=== PATIENT | female | born 1955 | race Caucasian/White ===

== ENCOUNTER 2024-08-04 07:38 | Outpatient (REF) | payer SELFPAY ==
--- NOTE | ~2024-08-04 | XR_ITS ---
EXAMINATION: XR KNEE, RIGHT CLINICAL INFORMATION: Pain in the right knee COMPARISON: None available. TECHNIQUE: Four views of the right knee. FINDINGS: The joint compartments are unremarkable without joint space narrowing or marginal osteophytes. There is a 5 x 3 mm area of ossification noted posterior and just distal to the joint line. This could reflect loose body within a Danielle's cyst or ossification/calcification related to old soft tissue trauma. No effusion. XR/XR knee RT 3V IMPRESSION: No definite osteoarthritis or acute abnormality. Question loose body versus posttraumatic change in the posterior soft tissues Electronically signed by: Chidi Singh MD 08/10/2024 08:33 AM LESLY
== END 2024-08-04 07:39 | disposition home or self-care (01) ==
LOC: HO.HOSX 07:38
PROVIDERS: Visit Provider Orthopaedic Surgery
DX: M25.561 Pain in right knee (principal)
CPT/HCPCS: 73562; 99202

== ENCOUNTER 2024-08-04 08:18 | Outpatient (AMB) | payer MEDICARE, SELFPAY ==
--- NOTE | 2024-08-04 08:22 | A.OFFVIS_ITS ---
Intake Visit Reasons: [employer]-Right Knee Pain Intake Note: Tessa is a 68 year old female who presents with complaints of right knee pain. She describes her pain as sharp in nature. Most of the pain is along the anterior aspect of her right knee. The patient states that she did aggravate her right knee several weeks ago while kneeling doing yd work. She denies any locking or giving way. She has tried Tylenol and anti-inflammatory medicines which gave her only mild relief. She has done stretching exercises which seemed to aggravate her pain. Allergies No Known Allergies Allergy (Verified 08/04/24 08:29) Medication List - Last Reconciled 08/05/24 by Camron [place] MD atorvastatin 10 mg PO BEDTIME levothyroxine 75 mcg PO DAILY lorazepam mg PO methylprednisolone (Medrol (Aric)) PO PER PKG DIR Physical Exam Const Other: Well-nourished well-developed very friendly female awake alert and oriented x3 in no acute distress Extrem Other: Bilateral lower extremity examination shows good capillary refill, no skin lesions noted, normal sensation light touch Right knee examination shows a minimal effusion, mild crepitus with range of motion, tenderness along her medial joint line, positive Waleska's test, no instability Results Reviewed Results Reviewed: X-rays of the patient's right knee show mild diffuse joint space narrowing, no acute bony abnormalities Assessment & Plan Assessment & Plan (1) Right knee pain: Code(s): M25.561 - Pain in right knee Category: Medical Plan Mrs. Pagan presents with right knee pain due to early degenerative joint disease versus possible medial meniscus tearing. I had a lengthy discussion with the patient regarding the treatment options. We will hold off on a cortisone injection for now. I did give her a prescription for a Medrol Dosepak to help with inflammation. She will contact me by phone should her symptoms not plateau at an unacceptable level over the next few weeks. Feel free to call me at any time should questions regarding her orthopedic management arise. I spent 22 minutes in reviewing the patient's records and imaging studies, fermín nichols the patient and documenting in the medical record. Orders: Orders XR knee RT 3V 08/04/24 M25.561 - Pain in right knee Medications: New methylprednisolone (Medrol (Aric)) PO PER PKG DIR 21 ea 0RF Coding Level of Care Code New Pt Level 3 (43859) Complex EM visit Add On G2211 Diagnoses Right knee pain M25.561
== END 2024-08-04 08:45 | disposition home or self-care (01) ==
LOC: HO.HOS 08:19
PROVIDERS: PCP Internal Medicine; Visit Provider Orthopaedic Surgery
DX: M25.561 Pain in right knee (principal)
CPT/HCPCS: 99203; G2211

== ENCOUNTER → 2024-11-18 08:10 | Outpatient (BNV) | payer MEDICARE, SELFPAY | PROVIDERS: PCP Nurse Practitioner Adult Health; Visit Provider Radiology Diagnostic Radiology | DX: S83.241A Other tear of medial meniscus, current injury, right knee, initial encounter (principal) | CPT/HCPCS: 73721 ==

== ENCOUNTER 2024-11-18 08:12 | Outpatient (REF) | payer MEDICARE, SELFPAY ==
--- NOTE | ~2024-11-18 | MR_ITS ---
CLINICAL HISTORY: S83.241A - Other tear of medial meniscus, current injury, right knee, in... MR right knee without gadolinium Comparison: None Findings: Regions of reactive marrow edema in the patella. No marrow changes of occult fracture, contusion or osteonecrosis. Fraying of the free edge of the posterior horn medial meniscus near the root attachment. No root avulsion. Oblique signal in the posterior horn extending to the tibial articular surface although not meeting strict MR criteria for tear. Additional longitudinal signal in the peripheral 3rd of the posterior horn and body suggesting a nondisplaced peripheral longitudinal tear without meniscocapsular separation. Slight fissuring of the medial weight-bearing cartilage of the medial femoral condyle without focal defect or subchondral marrow changes. Complex septated fluid collection deep to the pes anserinus tendons compatible with pes anserinus bursitis at approximate 1.5 x 0.5 x 3 point 5 cm AP, transverse in length.. Abnormal posterior root attachment of the lateral meniscus with fluid elevating the root attachment although no ree root avulsion. Remainder of the signal and contour of the lateral meniscus is intact. Intact articular cartilage lateral compartment. Intact anterior and posterior cruciate ligaments. Intact medial collateral ligament, lateral collateral ligament, biceps femoris tendon, popliteus tendon and iliotibial band. Deep chondral thinning of the lateral patellar cartilage near the median ridge midpole extending to the subchondral plate with subchondral cystic change and reactive edema. Additional fissuring of the more lateral patellar cartilage lower pole and within the medial patellar facet lower pole. Moderate thinning over the median ridge. Intact trochlear cartilage. Physiologic amount of joint fluid. No Danielle's cyst. Impression: Longitudinal signal in the periphery of the posterior horn and body of the medial meniscus suggesting a longitudinal tear. Mild deformity without displaced flap. Additional fraying of the free edge of the posterior horn near the root attachment without root avulsion. Lobulated septated fluid collection deep to the pes tendons compatible with pes anserinus bursitis. Fluid signal elevating the posterior root attachment of the posterior horn lateral meniscus suggesting partial root avulsion. No complete avulsion. Remainder of the lateral meniscus intact. Multifocal deep chondral fissuring of the patellar cartilage most pronounced lateral patellar facet and midpole near the median ridge. This document has been electronically signed by: Tim Shanks MD on 11/18/2024 12:54:31
--- OUTSIDE RECORDS SUMMARY | 2024-11-18 08:20 | XMS_ITS | Encounter Summary ---
Author Organization [facility] Address [address] [place] [address] Care Team Providers Care Judge Clerk Name Role Phone Di Winters MD Primary Care Provider Encounter Details Date Type Department Care Team ([facility] st Contact Info) Description 11/08/2024 Telephone Neurosurgery [facility] [address] [address] Stephanie Riley MD [address] [place] [address] Social History Tobacco Use Types Packs/Day Years Used Date Smoking Tobacco: Never Smokeless Tobacco: Never Alcohol Use Standard Drinks/Week Comments Yes 0 (1 standard drink = 0.6 oz pur e alcohol) Comments Unknown Sex and Gender Information Value Date Recorded Sex Assigned at Not on file Legal Sex Female 3:24 PM EST Gender Identity Not on file Sexual Orientation Not on file documented as of this encounter Progress Notes * Stephanie Riley MD - 11/08/2024 5:54 PM EST I spoke to Ms. Pagan who feels quite well and has no issues with headache or vision changes. 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 The previous scan from [facility] on 12/05/2022measured at 10 mm. As there is no growth, on nodular formation or septation, we will still consider this a simple cyst and we will repeat her scan in 2 years. documented in this encounter Plan of Treatment Not on file documented as of this encounter Visit Diagnoses Not on filedocumented in this encounter Care Teams Judge Clerk Relationship Specialty Start Date End Date Di Winters MD [address] [place] [address] PCP - General Internal Medicine 12/04/17 documented as of this encounter
--- OUTSIDE RECORDS SUMMARY | 2024-11-18 08:20 | XMS_ITS | Data Portability ---
Author Organization [facility] Address [address] [place] [address] Assessment No assessment recorded. Plan of Treatment Reminders Order Date Submit Date Provider Last Modified By Organization Details Last Modified Time Details Appointments None record ed. Lab None record ed. Referral None record ed. Procedures None record ed. Surgeries None record ed. Imaging None record ed. Medication Orders None record ed. Patient TargetsNo targets recorded. Patient InstructionsNo instructions recorded. Reason for Referral None Reported. Procedures Surgical History Date Name Laterality Status Provider Name and Address Organization Details Recorded Time Mastectomy completed Es Garcia [facility] 06/01/2016 11:12:53 Other completed Es [facility] 06/01/2016 11:13:15 Imaging Results None recorded. Procedure Notes None recorded. Medical Equipment None Reported. Allergies No known drug allergies Medications Name Sig Start Date Stop Date Status Note LastModified by Organization Details LastModified Time levothyroxine 50mcg active Not Available Not Available Not Available Vitals Date Recorded Body height Body weight Body mass index (BMI) Heart rate Oxygen saturation Oxygen saturation in Arterial blood by Pulse oximetry Respiratory rate Body temperature Systolic blood pressure Diastolic blood pressure Provider Name and Address Organization Details Last Updated DateTime 6 162.56 cm 13525.0 5 g 21.5 kg/m2 80 /min 98 % 98 % 18 /min 97.7 [degF] 94 mm[Hg] 68 mm[Hg] Es Stout [facility] 6 11:16:05 Social History None recorded. Functional Status None recorded. Mental Status None recorded. Family History Relationship Description Onset Age of this Age Resolved Age Notes LastModified by Organization Details LastModified Time Father No current problems or disability [email or web address] Not available 06/01 11:12:41 Mother No current problems or disability [email or web address] Not available 06/01 11:12:41 Medical History Condition Response High Blood Pressure N Ear or Hearing Problems N Thyroid Problems Y Eye Disorders N Kidney Disease/Dialysis N Lung Disease (Emphysema/Asthma/Chronic B ronchitis N Stroke or Paralysis N Heart disease, heart attack, or other ca rdiovascular condition N Blood Disorders/Anemia N Eczema, Hives or other skin conditions N Diabetes (Diet/Insulin/Pill Control) N Any illness or injury in the last 5 year s N Urology Problems (Interstitial Cystitis/ Benign Prostate Hypertrophy (BPH) N Seizures/Epilepsy N Muscle, Joint, or Bone Problems/Arthriti s/Rheumatological N Serious Illness or Injuries N Hospital Admission in the past year N Cancer Y Headaches/Brain Injuries or Disorders N Chronic Pain N Heart Surgery (Valve/Bypass/Angioplasty) N Allergies N Psychiatric Disorder/Depression/Anxiety/ Insomnia N other N Loss or Altered Consciousness N Gynecological N Abdominal/Digestive N High Cholesterol N Liver Disease N Low Back Pain N Gynecological HistoryNo gynecological history recorded. Obstetrics History GPAL:G 0 P 0 0 0 0 Immunizations Vaccine Type Date Status Note Provider Nam e and Address Organization Details Recorded Time Tdap 06/01/2016 completed Not Available [facility]16/2019 02:13:35 Past Encounters Encounter ID Performer Location Encounter Start Date Encounter Closed Date Diagnosis/Indication Diagnosis SNOMED-CT Code Diagnosis ICD10 Code Diagnosis Note [id number] emir mcmullen [facility] [address] [place] [address] 06/01/2016 10:55:00 06/01/2016 12:14:39 Administration of diphtheria, pertussis, and tetanus vaccine 420089784 Z23 Laceration of lower leg 278724469 S81.812A Tetanus up to date. Keep wound clean, dry and covered. Light layer of triple antibiotic ointment. Change bandage every day or if it gets dirty or wet. No concern at this time for exposure requiring antibiotic prophylaxi s. Discussed reasons to RTC early such as wound isn't healing or you notice any redness, increasing pain, drainage, warmth or swelling. As well as fever, chills, nausea, vomiting or diarrhea Discussed diagnosis and treatment options with patient. The patient/ca regiver is aware of reasons to return to care sooner or present directly to the emergency department . Answered all of patient? s /caregiver 's questions and patient is in agreement with above assessment and plan. Health Concerns Section Related Observation LastModified by Organization Detai ls LastModified Time None Recorded Concern Status LastModified by Organization Details LastModified Time None Recorded Advance Directives Directive None Recorded Payers Encounter Date Sequence Insurance Name Policy Number Policy Onofre Covered Member ID Onofre Member ID Guarantor Name 06/01/[address] [facility] Jax Pagan [id number] Tessa Ej Notes Date Note Type Note Provider Name and Address Organization Details Recorded Time 06/01/2016 text/html Rash/Skin LesionReported bypatient.Location:l eft lower leg Quality:not itchy; not painful Severity:mild Duration:24 hours Onset/Timing:abrupt onset Context:hit leg with car door Alleviating Factors:cleaned at time Aggravating Factors:nothing makes it worse Associated Symptoms:no fever; no cold symptoms; no nausea; no vomiting; no diarrhea emir wu [place] - [facility] 06/07/2016 14:57:00 OBGyn Episode No OBEpisode recorded.
--- OUTSIDE RECORDS SUMMARY | 2024-11-18 08:20 | XMS_ITS | Encounter Summary ---
Author Organization [facility] Address [address] [place] [address] Care Team Providers Care Passenger Car Cleaning Supervisor Name Role Phone Di Winters MD Primary Care Provider [phone] Encounter Details Date Type Department Care Team (Late st Contact Info) Description 10/28/2024 Telephone Neurosurgery [address] [place] [address] Tatyana Lopez MA Social History Tobacco Use Types Packs/Day Years [...] as of this encounter Progress Notes * Tatyana Lopez MA - 10/28/2024 10:48 AM EST Left message for patient to call back, verify ok to schedule follow up brain mri at [facility] and update insurance. documented in this encounter Plan of Treatment Not on file documented as of this encounter Visit Diagnoses Not on filedocumented in this encounter Care Teams Passenger Car Cleaning Supervisor Relationship Specialty Start Date End Date Di Winters MD [address] [place] [id number] PCP - General Internal Medicine 12/04/17 documented as of this encounter
--- OUTSIDE RECORDS SUMMARY | 2024-11-18 08:20 | XMS_ITS | Encounter Summary ---
Author Organization [facility] Address [address] [place] [address] Care Team Providers Care Clinical Interviewer Name Role Phone Di Winters MD Primary Care Provider [phone] Encounter Details Date Type Department Care Team (Late st Contact Info) Description 10/28/2024 Telephone Neurosurgery [address] [place] [address] Tatyana Lopez MA Social History [...] Notes * Tatyana Lopez MA - 10/28/2024 1:50 PM EST Patient returned my call, patient had MRI brain done in June 2024 at [facility]. I will pull results for Dr. Riley to review and verify when repeat imaging is needed. documented in this encounter Plan of Treatment Not on file documented as of this encounter Visit Diagnoses Not on filedocumented in this encounter Care Teams Clinical Interviewer Relationship Specialty Start Date End Date Di Winters MD [address] [place] [address] PCP - General Internal Medicine 12/04/17 documented as of this encounter
--- OUTSIDE RECORDS SUMMARY | 2024-11-18 08:20 | XMS_ITS | Clinical Summary ---
Author Organization [facility] Address [address] [place] [address] Care Team Providers Care Condenser Setter Name Role Phone Di Winters MD Primary Care Provider [phone] Allergies No known active allergies Medications Medication Sig Dispensed Refills Start Date End Date Status levothyroxine (SYNTHROID, LEVOXYL) tablet 125 mcg Take 125 mcg by mouth every morning on an empty stomach. 0 Active traZODone (DESYREL) 50 MG tablet 0 08/23/2019 Active Diclofenac Sodium 1 % GEL topical take 1 APPLICATION to affected area four times a day if needed 0 08/20/2019 Active ASPIRIN 81 PO Take by mouth. 0 Active levothyroxine (SYNTHROID) tablet 75 mcg 0 07/19/2021 Active escitalopram (LEXAPRO) tablet 10 mg 0 08/11/2021 Active Lactobacillus (ACIDOPHILUS PO) Take by mouth. 0 Acti ve Active Problems Problem Noted Date Diagnosed Date Acute bilateral low back pain without sciatica 1 11/20/2020 Overuse syndrome of shoulder, right, initial enc ounter 08/15/2021 Subacromial bursitis of right shoulder joint Glenohumeral arthritis, right 08/15/2021 Lumbar back pain with radicu lopathy affecting right lower extremity 03/10/2019 Chronic sciatica, right 03/10/2019 Family History Medical History Relation Name Comments Hyperlipidemia Brother Heart disease Father Arthritis Mother Heart disease Mother Hyperlipidemia Mother Relation Name Status Comments Brother Father Mother Social History Tobacco Use Types Packs/Day Years Used Date Smoking Tobacco: Never Smokeless Tobacco: Never Alcohol Use Standard Drinks/Week Comments Yes 4 (1 standard drink = 0.6 oz pur e alcohol) Sex and Gender Information Value Date Recorded Sex Assigned at Not on file Gender Identity Not on file Sexual Orientation Not on file Job Start Date Occupation Industry Not on file Not on file Not on file Last Filed Vital Signs Vital Sign Reading Time Taken Comments Blood Pressure - - Pulse - - Temperature - - Respiratory Rate - - Oxygen Saturation - - Inhaled Oxygen Concentration - - Weight 50.3 kg (111 lb) 08/15/2021 9:35 AM EST Height 162.6 cm (5' 4 ) 08/15/2021 9:35 AM EST Body Mass Index 19.05 08/15/2021 9:35 AM EST Plan of Treatment Health Maintenance Due Date Last Done Comments Hepatitis C Screening 1955 COVID-19 Vaccine (#1) 03/15/1957 Depression Screening 1968 Preventative Health Evaluation 1974 Colon Cancer Screening (Colonoscopy) 2001 Breast Cancer Screening (Mammogram) 2006 Shingrix-Zoster Vaccine (1 of 2) 2006 Fall Risk Assessment 2021 Osteoporosis Screening (DEXA Scan) 2021 Pneumococcal Vaccine (1 of 1 - PCV) 2021 Influenza Vaccine (#1) 2024 DTap / Tdap / Td (2 - Td or Tdap) 06/01/2026 016 RSV Adult > 60+ Yrs or Pregn ant (1 - 1-dose 75+ series) 2031 Hepatitis B Vaccines Aged Out No long er eligible based on patient's age to complete this topic RSV Ped < 20 months Aged Out No longe r eligible based on patient's age to complete this topic Care Teams Condenser Setter Relationship Specialty Start Date End Date Di Winters MD [address] [place] [id number] PCP - General Internal Medicine 12/04/17
--- OUTSIDE RECORDS SUMMARY | 2024-11-18 08:20 | XMS_ITS | Clinical Summary ---
Author Organization [facility] Address [address] [place] [address] Care Team Providers Care Store Person Name Role Phone Di Winters MD Primary Care Provider [phone] Encounters Date Type Department Care Team Description 11/08/[address] [address] Stephanie Riley MD 10/28/[address] [phone] [facility] 10/28/[address] [address] [facility] [place] from Last 3 Months Surgical History Surgery Date Site/Laterality Comments OTHER SURGICAL HISTORY 2000 Right PROCEDURE: PARTIAL MASTECTOMY Medical History Medical History Date Comments Hypothyroidism DX:Hypothyroidis m Breast cancer ([facility]/H[facility]) 2000 DX:Breas t cancer ([facility]); COMMENT: right Anxiety state DX:Anxiety state Benign paroxysmal vertigo of both ears DX:Benign paroxysmal vertigo of both ears Family History Medical History Relation Name Comments Hypertension Mother Thyroid disease Paternal Grandmother Relation Name Status Comments Father Mother Alive Paternal Grandmother Social History Tobacco Use Types Packs/Day Years Used Date Smoking Tobacco: Never Smokeless Tobacco: Never Alcohol Use Standard Drinks/Week Comments Yes 0 (1 standard drink = 0.6 oz pur e alcohol) Comments Unknown Sex and Gender Information Value Date Recorded Sex Assigned at Not on file Legal Sex Female 3:24 PM EST Gender Identity Not on file Sexual Orientation Not on file Obstetrics History Last Filed Vital Signs Vital Sign Reading Time Taken Comments Blood Pressure 110/78 01/28/2022 10:31 AM EDT Pulse 66 01/28/2022 10:31 AM EDT Temperature - - Respiratory Rate - - Oxygen Saturation - - Inhaled Oxygen Concentration - - Weight 50.8 kg (112 lb) 04/22/2023 3:42 PM EDT Height 162.6 cm (5' 4 ) 04/22/2023 3:42 PM EDT Body Mass Index 19.22 04/22/2023 3:42 PM EDT Plan of Treatment Health Maintenance Due Date Last Done Comments Breast Cancer Screening 1956 COVID-19 Vaccine (#1) 1961 DTaP,Tdap,and Td Vaccines (1 - Tdap) 1975 Pneumococcal Vaccine: 50+ Years (1 of 2 - PCV) 1975 Zoster Vaccines (1 of 2) 1975 Colorectal Cancer Screening: Colonoscopy 08/28/2022 Depression Screening 08/28/2022 Falls Risk Assessment 08/28/2022 Hepatitis C Screening 08/28/2022 Osteoporosis Screening (Bone Density Screening) 08/28/2022 Social Influencers of Health Screening 08/28/2022 Influenza Vaccine (#1) 2024 8, 07/09/2017, 07/06/2016 RSV Immunization Patients 60 + Years Old (1 - 1-dose 75+ series) 2031 HIB Vaccines Aged Out No longer eligi ble based on patient's age to complete this topic HPV Vaccines Aged Out No longer eligi ble based on patient's age to complete this topic Hepatitis A Vaccines Aged Out No long er eligible based on patient's age to complete this topic Hepatitis B Vaccines Aged Out No long er eligible based on patient's age to complete this topic IPV Vaccines Aged Out No longer eligi ble based on patient's age to complete this topic MMR Vaccines Aged Out No longer eligi ble based on patient's age to complete this topic Meningococcal ACWY Vaccine Aged Out N o longer eligible based on patient's age to complete this topic Meningococcal B Vacine Aged Out No lo nger eligible based on patient's age to complete this topic RSV Immunization Patients Under 20 months Aged Out No longer eligible b ased on patient's age to complete this topic Varicella Vaccines Aged Out No longer eligible based on patient's age to complete this topic Care Teams Store Person Relationship Specialty Start Date End Date Di Winters MD [address] [place] [address] PCP - General Internal Medicine 12/04/17
--- OUTSIDE RECORDS SUMMARY | 2024-11-18 08:20 | XMS_ITS | Patient Health Record ---
Author Organization [facility] Address [address] [place] [address] Care Team Providers Care Cut Out Press Operator Name Role Phone LEESA REYNOLDS M.D. Primary Care Provider Unavail able Ree Palmer Unavailable [phone] Reason For Referral No Information Medications Medication SIG (Take, Route, Frequency, Duration) Notes Start Date End Date Status Probiotic Acidophilus - Orally Active Calcium 600 MG 1 tablet with meals Orally Once a day Active Multi-Vitamin Daily - 1 tablet Orally On ce a day Active Red Yeast Rice 600 MG Orally Active CoQ10 200 MG 1 capsule with a lorenza l Orally Once a day Active Fish Oil 500 MG 50mg capsule Orally Once a day Active Levothyroxine Sodium 50 MCG 1 tablet on an empty stomach in the morning Orally Once a day Active Social History Tobacco Use: Social History Observation Description Date Details (start date - stop date) Never Smoker NA - NA Tobacco Use/Smoking Question Answer Notes Are you a nonsmoker Alcohol Screen (Audit-C) Question Answer Notes Did you have a drink contain ing alcohol in the past year? Yes How often did you have a dri nk containing alcohol in the past year? 2 to 3 times a week (3 points) How many drinks did you have on a typical day when you were drinking in the past year? 1 or 2 drinks (0 point) Points 3 Interpretation Positive Sexual History Question Answer Notes Had sex in the past 12 months (vaginal, oral, or anal)? 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) Active confirmed Problem Hyperlipidemia (13790353) Hyperlipidemia, unspecified (E78.5) Active confirmed Problem Gastro-esophageal reflux disease with esophagitis (144068461) Gastro-esophageal reflux disease with esophagitis (K21.0) Active confirmed Problem Postmenopausal atrophic vaginitis (27346807) Postmenopausal atrophic vaginitis (N95.2) Active confirmed Plan Of Treatment No Information Insurance Providers Payer Name Payer Address Payer Phone Subscriber Number Group Number Insured Name Patient Relationship to Insured Coverage Start Date Coverage End Date [facility] [address] [place] [address] [id number] AISSATOU GONSALES Spouse - patient is the spouse of the insured Medical (General) History Medical History History ICD Code Gastro-esophageal reflux disease without esophagitis K21.9 Demarco's esophagus without dysplasia K2 2.70 Hypothyroidism, unspecified Gastro-esophageal reflux disease with es ophagitis Intraductal carcinoma in situ of right b reast Hyperlipidemia, unspecified Surgical History Surgery Date(Month/Year) Enlarged Lymph Node Colonoscopy 07/2016 Anal Cyst S/P Right Masectomy 1999 Left Foot Bunionectomy/Neuromectomy 10/18 12 Right Foot Bunionectomy 11/2012 [facility]yt[facility] Contracture Repair Left Hand Dupytrens Contracture Repair Right Hand 2011 Hospitalization History Reason Date(Month/Year) 2 Vaginal Deliveries See Surgical Hx
== END 2024-11-18 08:13 | disposition home or self-care (01) ==
LOC: HO.MRI 08:12
PROVIDERS: PCP Nurse Practitioner Adult Health; Visit Provider Orthopaedic Surgery
DX: S83.241A Other tear of medial meniscus, current injury, right knee, initial encounter (principal)
CPT/HCPCS: 73721

== ENCOUNTER 2024-12-01 10:54 | Outpatient (REF) | payer MEDICARE, SELFPAY ==
--- NOTE | ~2024-12-01 | MR_ITS ---
EXAMINATION: MRI LEFT KNEE WITHOUT CONTRAST HISTORY: S83.242A - Other tear of medial meniscus, current injury, left knee COMPARISON: There are no prior studies for comparison. TECHNIQUE: Coronal T1 and fat-suppressed proton density, sagittal proton density and fat-suppressed proton density, and axial fat suppressed T2 weighted MR images of the left knee were obtained. FINDINGS: Bone marrow: Bone marrow signal intensity is normal. Joint effusion: There is no joint effusion. Danielle's cyst: There is a small Danielle's cyst. Articular cartilage: There is moderate osteoarthritis of the patellofemoral compartment with cartilage loss, especially involving the medial patellar facet, and subchondral marrow changes. Muscles/soft tissues: The visualized muscles demonstrate normal signal intensity. Anterior cruciate ligament: Intact Posterior cruciate ligament: Intact Medial collateral ligament: Intact Lateral collateral ligament: Intact Medial meniscus: Intact Lateral meniscus: The anterior horn of the lateral meniscus is diminutive in size and demonstrates heterogeneous increased signal intensity, suggestive of a tear. The body and posterior horn are intact. Flexor mechanism: The popliteus, gastrocnemius, and hamstring tendons are intact. Quadriceps tendon: Intact Patellar tendon: Intact Patellar retinacula: Intact MR/MR knee LT wo con IMPRESSION: 1. Moderate osteoarthritis of the patellofemoral compartment. Small Danielle's cyst. 2. The anterior horn of the lateral meniscus is diminutive in size and demonstrates increased signal intensity, suggestive of a tear. Electronically signed by: Bimal Medrano MD 12/03/2024 09:58 AM [facility]
--- OUTSIDE RECORDS SUMMARY | 2024-12-01 13:14 | XMS_ITS | Encounter Summary ---
Author Organization [facility] Address [address] [place] [address] Care Team Providers Care Work Order Detailer Name Role Phone Di Winters MD Primary Care Provider [phone] Reason for Visit * Reason Comments Consult Melanoma on chest Encounter Details Date Type Department Care Team ([facility] st Contact Info) Description 11/22/2024 9:30 AM EST Office Visit Breast [facility] [address] [place] [address] [facility] ID [address] [place] [address] 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 (CMS/HCC) (Primary Dx); History of basal cell carcinoma Social History Tobacco Use Types Packs/Day Years [...] on file documented as of this encounter Last Filed Vital Signs Vital Sign Reading Time Taken Comments Blood Pressure 109/67 11/22/2024 9:46 AM EST Pulse 71 11/22/2024 9:46 AM EST Temperature 36 ??C (96.8 ??F) 11/22/2024 9:46 AM EST Respiratory Rate - - Oxygen Saturation - - Inhaled Oxygen Concentration - - Weight 52.9 kg (116 lb 9.6 oz) 11/22/2024 9:46 A M EST Height 162.6 cm (5' 4 ) 11/22/2024 9:46 AM EST Body Mass Index 20.01 11/22/2024 9:46 AM EST documented in this encounter Progress Notes * INES Shearer - 11/22/2024 9:30 AM EST [facility] You were seen today by Brittney Sosa PA-C Any questions please do not hesitate to call- we are temporarily located at [address] [place] [address], in the [facility]. Our [address] Location is not yet open. *Minor surgery is located in the Hospital on the 3rd floor Directions: Take the main hospital elevator to floor 3 There is a janitorial tech desk to your left, sign in with the wood tool maker there and wait for your procedure * INES Shearer - 11/22/2024 9:30 AM ESTAddended by: BRITTNEY SOSA on: 11/25/2024 01:58 PM Modules accepted: Orders * INES Shearer - 11/22/2024 9:30 AM ESTAddended by: BRITTNEY SOSA on: 11/25/2024 02:54 PM Modules accepted: Orders * INES Shearer - 11/22/2024 9:30 AM EST PATIENT: Tessa Pagan ENCOUNTER: 11/22/2024 EMRN: [id number] : 1955 CHIEF COMPLAINT: Consult (Melanoma on chest) The patient was given the opportunity to have a general maintenance helper present during a sensitive examination attoday's visit. She Declined this offer of a general maintenance helper. Accompanied by supportive HPI: Tessa Paagn is a 69 y.o. female presenting for evaluation of right chest lesion, biopsy provento be melanoma in situ. Airframe Technical Officer has referred her for complete excision of the lesion and reconstruction. She states that it has been there for approximately 2 to 3 years. Previous history of basal cell carcinoma resected by Dr. Gilbert in 2021. No family history or personal history of melanoma. Previous history of mastectomy, revision done by Dr. Sainz September 2024. Non-smoker. No aspirin. She is interested in resection and does understand there will be a scar. ROS: CONSTITUTIONAL: no malaise, no significant weight changes, no excessive fatigue, no fevers or chills EYES: no visual complaints ENT: no changes in hearing vision nasal problems or hoarseness CARDIOVASCULAR:no chest pain and leg swelling or palpitations RESPIRATORY: no chronic cough wheezing or shortness of breath GI: no abdominal pain nausea vomiting or diarrhea : no dysuria frequency or incontinence NEUROLOGICAL: no stated paresthesias PSYCHIATRIC: no change from baseline ENDOCRINE: no heat or cold intolerance HEMATOLOGIC: no excessive bleeding INTEGUMENTARY: As stated in HPI PAST MEDICAL HISTORY: Patient Active Problem List Diagnosis Basal cell carcinoma (BCC) of cheek Dupuytren's contracture Pineal gland cyst Acute bilateral low back pain without sciatica Lumbar back pain with radiculopathy affecting right lower extremity Anogenital warts Breast cancer, right (CMS/HCC) Chronic sciatica, right Gastro-esophageal reflux disease with esophagitis Glenohumeral arthritis, right Hyperlipidemia Hypothyroidism Intraductal carcinoma in situ of right breast Neuropathy, leg Overuse syndrome of shoulder, right, initial encounter Postmenopausal atrophic vaginitis Subacromial bursitis of right shoulder joint Vestibular migraine 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 MEDICATIONS: Outpatient Medications Marked as Taking for the 11/22/24 encounter (Office Visit) with INES Shearer Medication Sig Dispense Refill atorvastatin (LIPITOR) 10 mg tablet Take 1 tablet (10 mg total) by mouth. at bedtime calcium carbonate 1,500 mg (600 mg elemental calcium) tablet Take 600 mg by mouth. citalopram (CeleXA) 10 mg tablet Take 1 tablet (10 mg total) by mouth 1 (one) time each day. coenzyme Q-10 200 mg capsule Take 1 capsule (200 mg total) by mouth. diazePAM (VALIUM) 5 mg tablet Take 1 tablet (5 mg total) by mouth every 6 (six) hours if needed. for muscle spasms Max Daily Amount: 20 mg ferrous sulfate 325 mg (65 mg elemental iron) tablet Take 1 tablet (325 mg total) by mouth. levothyroxine sodium (TIROSINT) 75 mcg capsule Take 75 mcg by mouth daily. LORazepam (ATIVAN) 0.5 mg tablet methylPREDNISolone (MEDROL DOSPAK) 4 mg tablet See administration instructions. omega-3 (FISH OIL) 60-90-500 mg capsule 1 (one) time each day at the same time. PHYSICAL EXAM: Visit Vitals BP 109/67 Pulse 71 Temp 36 ??C (96.8 ??F) (Temporal) Ht 1.626 m (64 ) Wt 52.9 kg (116 lb 9.6 oz) BMI 20.01 kg/m?? Smoking Status Never BSA 1.56 m?? Head atraumatic Right chest biopsy site noted with surrounding re-epithelialized skin. Visual defect measures 1 x 1 cm [place], flat, irregular, epithelialized No other similar skin lesions noted. APPEARANCE: Normal EYES: Pupils, conjunctiva and sclera normal. EARS: normal MOUTH/THROAT: normal without lesions NECK: Neck supple LUNG: NO labored breathing NEURO: Awake, alert and oriented x 3 PSYCHIATRIC: Mood and affect are normal SKIN: as noted above LABS / PATHOLOGY: Airframe Technical Officer note and pathology report from biopsy reviewed. IMAGING: No new imaging to review IMPRESSION: 1. 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 History of basal cell carcinoma PLAN: 1. Tessa Pagan is a 69 y.o. female presenting for evaluation of right chest lesion, biopsy proven to be melanoma in situ. Discussion of the natural pathophysiology of melanoma in situ Discussed risks and benefits of surgical resection including poor wound healing, infection, necrosis, and need for further procedures and revision. Discussed the use of intermediate closure for reconstruction and the likely resulting scar including orientation size and location. Patient's questions were encouraged and answered to Her satisfaction. After this discussion She would like to proceed with surgical resection and reconstruction under local anesthetic Offered patient 12/10 surgical date however she will be in [place] so she will prefer 12/17 We will proceed. Will discuss with Dr. Gilbert. 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 coenzyme Q-10 200 mg capsule Take 1 capsule (200 mg total) by mouth. red yeast rice 600 mg capsule Orally oxyCODONE (ROXICODONE) 5 mg immediate release tablet TAKE 1 TABLET BY MOUTH EVERY 4 TO 6 HOURS NEEDED FOR PAIN. MAY FILL FOR LESSER QUANTITY 10/04/2024 omega-3 (FISH OIL) 60-90-500 mg capsule 1 (one) time each day at the same time. methylPREDNISol one (MEDROL DOSPAK) 4 mg tablet See administration instructions. 08/04/2024 mecobalamin, vitamin B12, 1,000 mcg tablet,chewable Chew 1,000 mcg. LORazepam (ATIVAN) 0.5 mg tablet 11/10/2024 gabapentin (NEURONTIN) 100 mg capsule Take 1 capsule (100 mg total) by mouth. at bedtime 01/06/2024 ferrous sulfate 325 mg (65 mg elemental iron) tablet Take 1 tablet (325 mg total) by mouth. diazePAM (VALIUM) 5 mg tablet Take 1 tablet (5 mg total) by mouth every 6 (six) hours if needed. for muscle spasms Max Daily Amount: 20 mg 10/01/2024 citalopram (CeleXA) 10 mg tablet Take 1 tablet (10 mg total) by mouth 1 (one) time each day. 2024 cephalexin (KEFLEX) 250 mg capsule 09/27/2024 calcium carbonate 1,500 mg (600 mg elemental calcium) tablet Take 600 mg by mouth. atorvastatin (LIPITOR) 10 mg tablet Take 1 tablet (10 mg total) by mouth. at bedtime 09/13/2024 added in this encounter Orders Case Request Count Last Ordered Date First Orde red Date CASE REQUEST OPERATING ROOM 1 11/25/2024 documented in this encounter Care Teams Work Order Detailer Relationship Specialty Start Date End Date Di Winters MD [address] [place] [address] PCP - General Internal Medicine 12/04/17 documented as of this encounter
--- OUTSIDE RECORDS SUMMARY | 2024-12-01 13:14 | XMS_ITS | Encounter Summary ---
Author Organization [facility] Address [address] [place] [address] Phone Care Team Providers Care Bag Checker Name Role Phone Di Winters MD Primary Care Provider [phone] Reason for Referral * Consultation (Routine) - New Request Specialty Diagnoses / Procedures Referred By Bobo saucedo Referred To Contact Rheumatology Diagnoses Unspecified place or not applicable Stalin Barrow MD [address] [place] [address], [address] [place] [address] Email: [facility] [address] [place] [address] Referral ID Status Reason Start Date Expiration Date V isits Requested Visits Authorized [id number] New Request 03/16/2024 03/16/2025 1 1 Encounter Details Date Type Department Care Team (Late st Contact Info) Description 03/16/2024 Transcribe Orders [facility] Referral Management [address] [place] [address] Stalin Barrow MD [address] [place] [address], [address] [place], [place] [id number] Social History Tobacco Use Types Packs/Day Years Used Date Smoking Tobacco: Never Assessed Education Answer Date Recorded Are you interested in more education? Not on tiana e 01/24/2023 Are you concerned about learning? Not on file 01/24/2023 No 01/24/2023 No 01/24/2023 Digital Access Answer Date Recorded No 02/23/2023 No 02/23/2023 No 02/23/2023 Reliable internet access at home? Not on file 02/23/2023 Device with a working camera? Not on file Sex and Gender Information Value Date Recorded Sex Assigned at Not on file Gender Identity Not on file Sexual Orientation Not on file documented as of this encounter Plan of Treatment Scheduled Referrals Name Type Priority Associated Diagnoses Order Schedule Ambulatory referral to [facility] Rheumatology Outpatient Referral Routine Ordered: 03/16/2024 documented as of this encounter Visit Diagnoses Not on filedocumented in this encounter Care Teams Bag Checker Relationship Specialty Start Date End Date Di Winters MD [address] [address] PCP - General Internal Medicine 03/19/22 documented as of this encounter Additional Source Comments The information contained in this document represents components of the legal health record. It is not the complete legal health record.[facility]
--- OUTSIDE RECORDS SUMMARY | 2024-12-01 13:14 | XMS_ITS | Clinical Summary ---
Author Organization [address] [facility] Address [address] [place] [address] Phone Care Team Providers Care Nascar Racer Name Role Phone Di Winters MD Primary Care Provider [phone] Allergies No known active allergies Medications nortriptyline (PAMELOR) 25 mg capsule Take 1 Capsule by mouth at bedtime. Active traZODone (DESYREL) 50 mg tablet Take 50 mg by mouth at bedtime. Active levothyroxine sodium (TIROSINT) 75 mcg capsule Take 75 mcg by mouth daily. Active atorvastatin (LIPITOR) 10 mg tablet Take 1 tablet (10 mg total) by mouth. at bedtime 4 Active calcium carbonate 1,500 mg (600 mg elemental calcium) tablet Take 600 mg by mouth. Active cephalexin (KEFLEX) 250 mg capsule 4 Active citalopram (CeleXA) 10 mg tablet Take 1 tablet (10 mg total) by mouth 1 (one) time each day. 4 Active diazePAM (VALIUM) 5 mg tablet Take 1 tablet (5 mg total) by mouth every 6 (six) hours if needed. for muscle spasms Max Daily Amount: 20 mg 5 Active ferrous sulfate 325 mg (65 mg elemental iron) tablet Take 1 tablet (325 mg total) by mouth. Active gabapentin (NEURONTIN) 100 mg capsule Take 1 capsule (100 mg total) by mouth. at bedtime 4 Active LORazepam (ATIVAN) 0.5 mg tablet 5 Active mecobalamin, vitamin B12, 1,000 mcg tablet,chewabl e Chew 1,000 mcg. Acti ve methylPREDNISo lone (MEDROL DOSPAK) 4 mg tablet See administration instructions. Active omega-3 (FISH OIL) 60-90-500 mg capsule 1 (one) time each day at the same time. Active oxyCODONE (ROXICODONE) 5 mg immediate release tablet TAKE 1 TABLET BY MOUTH EVERY 4 TO 6 HOURS NEEDED FOR PAIN. MAY FILL FOR LESSER QUANTITY Active red yeast rice 600 mg capsule Orally Activ e coenzyme Q-10 200 mg capsule Take 1 capsule (200 mg total) by mouth. Active Active Problems Problem Noted Date Diagnosed Date Anogenital warts 11/22/2024 Breast cancer, right 11/22/2024 Gastro-esophageal reflux disease with esophagiti s 11/22/2024 Hyperlipidemia 11/22/2024 Hypothyroidism 11/22/2024 Intraductal carcinoma in situ of right breast Neuropathy, leg 11/22/2024 Postmenopausal atrophic vaginitis 11/22/2024 Vestibular migraine 11/22/2024 Malignant melanoma in situ of skin of anterior c hest 11/22/2024 History of basal cell carcinoma 11/22/2024 Dupuytren's contracture 04/23/2023 Pineal gland cyst 12/10/2022 Overview (11/19/2024): Last Assessment & Plan: I reviewed this in detail with Ms. Pagan and the previously known pineal cyst appears stable with benign features. She has significant issues with vertigo and dizziness, pressure headaches and this altered sensation that she experiences every day. I do not believe the cyst is the etiology of any of these and we can continue to follow it with surveillance imaging. I will plan on getting the next MRI of the brain in 2 years and the patient will continue her follow-up with Dr. Taylor of ENT as needed. 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 [address] [place] [phone] Stephanie Riley MD 10/28/2024 [facility] [address] [place] [phone] [place], [place] 10/28/2024 [facility] [address] [place] [phone] [place], [place] from Last 3 Months Immunizations Name Administration Dates Next Due Influenza trivalent, with preservative (Fluzone; Afluria) 6mo and older 07/24/2022,07/13/2021,07/13/2018,2016,07/06/2016 SARS-COV-2 (COVID-19) Vaccin e, Unspecified 07/24/2022 Tdap Tetanus diptheria acell ular pertussis (Boostrix; Adacel) 7yo and older 06/01/2016 Zoster recombinant (Shingrix ) 19yo and older 04/04/2021,12/28/2020 Surgical History Surgery Date Site/Laterality Comments OTHER SURGICAL HISTORY 2000 Right PROCEDURE: PARTIAL MASTECTOMY Medical History Medical History Date Comments Hypothyroidism DX:Hypothyroidis m Breast cancer ([facility]) 2000 DX:Breas t cancer ([facility]); COMMENT: right Anxiety state DX:Anxiety state Benign [...] Mass Index 20.01 11/22/2024 9:46 AM EST Plan of Treatment Scheduled Procedures Name Priority Associated Diagnoses Date/Ti me EXCISION LESION TRUNK 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 (CMS/HCC) REPAIR LACERATION 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 (CMS/HCC) Health Maintenance Due Date Last Done Comments Breast Cancer Screening 1955 Pneumococcal Vaccine: 50+ Years (1 of 2 - PCV) 1975 Cholesterol Screening (Lipid Panel) 08/28/2022 Colorectal Cancer Screening: Colonoscopy 08/28/2022 Depression Screening 08/28/2022 Falls Risk Assessment 08/28/2022 Hepatitis C Screening 08/28/2022 Medicare Annual Wellness Visit 08/28/2022 Osteoporosis Screening (Bone Density Screening) 08/28/2022 Social Influencers of Health Screening 08/28/2022 COVID-19 Vaccine ( season) 2024 07/24/2022, 08/27/2021, 10/06/2020, Additional history exists Influenza Vaccine (#1) 2024 , 07/13/2021, 07/13/2018, Additional history exists DTaP,Tdap,and Td Vaccines (2 - Td or Tdap) 06/01/2026 06/01/2016 RSV Immunization Patients 60+ Years Old (1 - 1-dose 75+ series) 2031 Zoster Vaccines Completed 04/04/2021, 12/28/2020 HIB Vaccines Aged Out No longer eligi [...] 20 months Aged Out No longer eligible based on patient's age to complete this topic Varicella Vaccines Aged Out No longer eligible based on patient's age to complete this topic Procedures Procedure Name Priority Date/Time Associated Diagnosis Comments TISSUE EXAM Routine 11/23/2024 1:07 PM EST from Last 3 Months Results * Tissue exam (11/23/2024 1:07 PM EST) Tissue us Rosalinda Rivera MD LAB PATHOLOGY ORDERABLES Fi nal Result from Last 3 Months Insurance MEDICARE [facility] Care Teams Nascar Racer Relationship Specialty Start Date End Date Di Winters MD [address] [place] [address] PCP - General Internal Medicine 12/04/17
--- OUTSIDE RECORDS SUMMARY | 2024-12-01 13:14 | XMS_ITS | Continuity of Care Document ---
Author Organization [facility] Address [address] [place] [address]- Care Team Providers Care Special Education Coordinator Name Role Phone Davon SHAH, Claudia Sagastume Primary Care Physician Encounter [facility] Date(s): 10/20/24 - 11/19/[address] [address] Encounter Type: Triage Allergies, Adverse Reactions, Alerts No Known Medication Allergies Immunizations Given and Recorded Vaccine Date Status Refusal Reason influenza virus vaccine, inactivated 07/24/22 Tim rded influenza virus vaccine, inactivated 07/13/21 Tim rded influenza virus vaccine, inactivated 07/13/18 Tim rded influenza virus vaccine, inactivated 07/09/17 Tim rded influenza virus vaccine, inactivated 07/06/16 Tim rded [id number] 12y+ bivalent booster vax 07/24/22 Recorded SARS-CoV-2 (COVID-19) mRNA BNT-162b2 vac 08/27/21 Recorded SARS-CoV-2 (COVID-19) mRNA BNT-162b2 vac 10/06/20 Recorded SARS-CoV-2 (COVID-19) mRNA BNT-162b2 vac 09/15/20 Recorded zoster vaccine, inactivated 04/04/21 Recorded zoster vaccine, inactivated 12/28/20 Recorded tetanus/diphtheria/pertussis, acel(Tdap) 06/01/16 Recorded Problem List Condition Confirmation Course Effective Dates Status H ealth Status Informant Hyperlipidemia Confirmed Active Breast cancer, right Confirmed Active Vestibular migraine Confirmed Active Neuropathy, leg Confirmed Active Social History Social History Type Response Smoking Status Never smoker; Type: Cigarettes entered on: 05/29/16 Sex Sex Representation Female (finding) Patient Care team information Care Team Personnel Name: Davon SHAH, Claudia Sagastume Position: [facility] PCO Associate Professional Member Role: PCP Address: [address] [place] [address] Primary Care [place], [place] [address] Telecom: Care Team Related Persons Name: AISSATOU GONSALES Name: NO, ONE Insurance Providers Guarantor name: TRAVON GONSALES Health Plan Information #: 1 Payer: MEDICARE PART B OUTPT Member Number: NA Policy Number: NA Group Number: NA Health Plan Information #: 2 Payer: [employer]EX Member Number: NA Policy Number: NA Group Number: NA
--- OUTSIDE RECORDS SUMMARY | 2024-12-01 13:14 | XMS_ITS | Clinical Summary ---
Author Organization [facility] Address [address] [place] [address] Care Team Providers Care Porcelain Enamel Installer Name Role Phone Di Winters MD Primary Care Provider [phone] Allergies No known active allergies Medications Medication [...] age to complete this topic Care Teams Porcelain Enamel Installer Relationship Specialty Start Date End Date Di Winters MD [address] [place] [id number] PCP - General Internal Medicine 12/04/17
--- OUTSIDE RECORDS SUMMARY | 2024-12-01 13:14 | XMS_ITS | Encounter Summary ---
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 The previous scan from [facility] on 12/05/2022measured at 10 mm. As there [...] on filedocumented in this encounter Care Teams Brownell Operator Relationship Specialty Start Date End Date Di Winters MD [address] [place] [phone] PCP - General Internal Medicine 12/04/17 documented as of this encounter
--- OUTSIDE RECORDS SUMMARY | 2024-12-01 13:14 | XMS_ITS | Clinical Summary ---
Author Organization [facility] Address [address] [address] Phone Care Team Providers Care Leather Craftsman Name Role Phone Di Winters MD Primary Care Provider [phone] Medications No known medications Active Problems No known active problems Social History Tobacco Use Types Packs/Day Years [...] on file Sexual Orientation Not on file Plan of Treatment Health Maintenance Due Date Last Done Comments LIPID PANEL 1956 DEPRESSION SCREENING 1968 SMOKING Hx and SMOKELESS TOBACCO SCREENING 1969 HEPATITIS B SCREENING 1974 HEPATITIS C SCREENING 1974 MAMMOGRAM 1996 COLOGUARD 2001 COLONOSCOPY 2001 COLORECTAL CANCER SCREENING 2001 FIT TEST 2001 FOBT 2001 SIGMOIDOSCOPY 2001 VIRTUAL COLONOSCOPY 2001 PNEUMOCOCCAL VACCINES (50+ years) (1 of 1 - PCV) 2006 OSTEOPOROSIS SCREENING INITIAL (ONE-TIME) 2021 INFLUENZA VACCINE (#1) 2024 , 07/13/2018, 07/09/2017, Additional history exists COVID-19 VACCINE ( season) 2024 08/27/2021, 10/06/2020, 09/15/2020 Adult Td,Tdap Booster 06/01/2026 06/01/2016 RSV VACCINE (1 - 1-dose 75+ series) 2031 ZOSTER VACCINES Completed 04/04/2021, 12/28/2020 HEPATITIS A VACCINES Aged Out No long er eligible based on patient's age to complete this topic HEPATITIS B VACCINES Aged Out No long er eligible based on patient's age to complete this topic HIB VACCINES Aged Out No longer eligi ble based on patient's age to complete this topic MENINGOCOCCAL VACCINES (ACWY) Aged Out No longer eligible based on patient's age to complete this topic Medical Devices Not on file Care Teams Leather Craftsman Relationship Specialty Start Date End Date Di Winters MD [address] [place] [phone] PCP - General Internal Medicine 03/19/22 Additional Source Comments The information contained in this document represents components of the legal health record. It is not the complete legal health record.[facility]
--- OUTSIDE RECORDS SUMMARY | 2024-12-01 13:14 | XMS_ITS | Data Portability ---
Author Organization [facility], [facility] Address [address] [place] [address] Assessment No assessment recorded. Plan of Treatment [...] Details Recorded Time Mastectomy completed Es Garcia [facility] 06/01/2016 11:12:53 Other completed [facility] 06/01/2016 11:13:15 Imaging Results None recorded. Procedure [...] Details Last Updated DateTime 6 162.56 cm 15172.0 5 g 21.5 kg/m2 80 /min 98 % 98 % 18 /min 97.7 [degF] 94 mm[Hg] 68 mm[Hg] Es Stout [facility] 6 11:16:05 Social History None recorded. [...] Recorded Time Tdap 06/01/2016 completed Not Available [facility] 10/16/2019 02:13:35 Past Encounters Encounter ID Performer Location Encounter Start Date Encounter Closed Date Diagnosis/Indication Diagnosis SNOMED-CT Code Diagnosis ICD10 Code Diagnosis Note [id number] emir mcmullen [facility] [address] [place] [address] 06/01/2016 10:55:00 06/01/2016 12:14:39 Administration of diphtheria, pertussis, and tetanus vaccine 816228142 Z23 Laceration of lower leg 542283436 S81.812A Tetanus up to date. Keep wound [...] Onofre Member ID Guarantor Name 06/01/2016 1 [facility] Jax Pagan [id number] Tessa Ej Notes Date Note Type Note Provider Name and Address Organization Details Recorded Time 06/01/2016 text/html Rash/Skin LesionReported bypatient.Location:l eft lower leg Quality:not itchy; not painful Severity:mild Duration:24 hours Onset/Timing:abrupt onset Context:hit leg with car door Alleviating Factors:cleaned at time Aggravating Factors:nothing makes it worse Associated Symptoms:no fever; no cold symptoms; no nausea; no vomiting; no diarrhea emir wu [place] - [facility] 06/07/2016 14:57:00 OBGyn Episode No OBEpisode recorded.
--- OUTSIDE RECORDS SUMMARY | 2024-12-01 13:14 | XMS_ITS | Patient Health Record ---
Author Organization [facility] Address [address] [place] [address] Care Team Providers Care Varnish Maker Name Role Phone LEESA REYNOLDS M.D. 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 Problem Hyperlipidemia (42742543) Hyperlipidemia, unspecified (E78.5) Active confirmed Problem Gastro-esophageal reflux disease with esophagitis (765396815) Gastro-esophageal reflux disease with esophagitis (K21.0) Active confirmed Problem Postmenopausal atrophic vaginitis (58704350) Postmenopausal atrophic vaginitis (N95.2) Active confirmed Plan Of Treatment No Information Insurance Providers Payer Name Payer Address Payer Phone Subscriber Number Group Number Insured Name Patient Relationship to Insured Coverage Start Date Coverage End Date [facility] [address] [place] [address] [id number] AISSATOU GONSALES Spouse - patient is the [...]
== END 2024-12-01 10:55 | disposition home or self-care (01) ==
LOC: HO.MRI 10:54
PROVIDERS: PCP Nurse Practitioner Adult Health; Visit Provider Orthopaedic Surgery
DX: S83.242A Other tear of medial meniscus, current injury, left knee, initial encounter (principal)
CPT/HCPCS: 73721

== ENCOUNTER → 2024-12-01 11:02 | Outpatient (BNV) | payer MEDICARE, SELFPAY | PROVIDERS: PCP Nurse Practitioner Adult Health; Visit Provider Radiology Diagnostic Radiology | DX: M17.12 Unilateral primary osteoarthritis, left knee (principal); M71.22 Synovial cyst of popliteal space [Baker], left knee; M23.342 Other meniscus derangements, anterior horn of lateral meniscus, left knee | CPT/HCPCS: 73721 ==